=== PATIENT | female | born 1950 | race Caucasian/White ===

== ENCOUNTER 2016-10-20 08:54 | Emergency (ER) | payer MEDICARE ==
[~2016-10-20] VITALS: Ht 160 cm; Wt 101.0 kg
[~2016-10-20 08:54] MED LIST: CEPH500C3 PO; COLC1TAB7 PO; MEDR4PAK3 PO; MELO15TA2 PO; METF500 PO
[2016-10-20 08:56] VITALS: PULSE 63; RESP 16; TEMP 98.5; O2SAT 97
[2016-10-20] MEDS ORDERED: ACETAMINOPHEN 500 MG CPLT PO ONE (09:15)
[2016-10-20] MEDS ORDERED: PRED10 PO (09:17)
[2016-10-20] MEDS ORDERED: METF500T PO (09:17)
[2016-10-20] MEDS ORDERED: MELO-1 PO (09:21)
--- NOTE | 2016-10-20 09:22 | PD ---
HPI Chief Complaint: Musculoskeletal Complaint Time Seen by Provider: 09:10 Travel History International Travel<30 days: No Contact w/Intl Traveler<30days: No Traveled to known affect area: No History of Present Illness HPI This 65-year-old woman who presents to the emergency department complaining of right knee pain. She's had right knee pain for the past week or so. Was worse yesterday. Last night it also got abruptly worse. She today felt something pop in it. No injuries. No increased activity. She is a history of gout and thought maybe it was her gout so she took her prednisone last night. States she 's had GI upset NSAIDs in the past. No other complaints. History Past Medical History Narrative Medical Gout Diabetes Social History Alcohol Use: No Tobacco Use: No Allergies-Medications (Allergen,Severity, Reaction): Coded Allergies: Levaquin (Verified Allergy, Intermediate, Itching, 10/20/16) Nonsteroidal Anti-Inflammatory Agts (Verified Adverse Reaction, Intermediate, Nausea/Vomiting, 10/20/16) Reported Meds & Prescriptions Reported Meds & Active Scripts Active Meloxicam 15 Mg Tab 15 Mg PO DAILY Reported Metformin (Metformin HCl) 500 Mg Tab 500 Mg PO HS With a meal Prednisone 10 Mg Tab 10 Mg PO ONCE Review of Systems Except as stated in HPI: all other systems reviewed are Neg Physical Exam Narrative GENERAL: Well-appearing 65-year-old woman, no acute distress. SKIN: Warm and dry. CARDIOVASCULAR: Warm and well perfused. RESPIRATORY: Normal rate and effort. MUSCULOSKELETAL: Grossly normal appearance the right knee. Is no obvious effusion or swelling. She has pain with range of motion of the but is still of arrange a pretty well. She is unwilling to extend against resistance to the pain. There is no warmth erythema or redness to suggest inflammation. NEUROLOGICAL: Awake and alert. No gross deficits. Data Data Last Documented VS Vital Signs Date Time Temp Pulse Resp B/P Pulse Ox O2 Delivery O2 Flow Rate FiO2 10/20/16 08:56 98.5 63 16 97 Orders Knee, Complete (4vws) (10/20/16 ) Acetaminophen (Tylenol) (10/20/16 09:15) MDM Medical Decision Making Medical Screen Exam Complete: Yes Emergency Medical Condition: Yes Differential Diagnosis Arthritis, injury, fracture, gout, other Narrative Course Medical decision making 65-year-old woman presents emergent part nontraumatic right knee pain. We'll check x-ray, likely negative. Recommended supportive treatment. Acetaminophen or tramadol as needed for pain. Diagnosis Primary Impression: Right knee pain Qualified Code: M25.561 - Acute pain of right knee Additional Instructions: Follow-up with orthopedic doctor for further evaluation of your knee pain. Take acetaminophen, 1000 mg 3 times daily, as needed for pain. Return to the emergency department for any new or worsening symptoms. Med/Other Pt SpecificInfo: Prescription(s) given Scripts Tramadol 50 Mg Tab50 Mg PO Q6H PRN (PAIN) #15 TAB Ref 0 Prov:Wilner Calhoun MD 10/20/16 Disposition: 01 DISCHARGE HOME Condition: Stable Wilner Calhoun MD Oct 20, 2016 09:22 Wilner Calhoun MD Oct 20, 2016 09:22
[2016-10-20] MEDS ORDERED: TRAM50TA PO (09:54)
[2016-10-20 09:58] VITALS: BP 162/84; PULSE 58; RESP 16; O2SAT 97
[2016-10-20] MEDS ORDERED: traMADol HCL 50 MG TAB PO ONE (10:00)
--- NOTE | 2016-10-20 10:10 | RADHPO ---
EXAM DATE/TIME: 10/20/2016 09:23 [place] COMPARISON: No previous studies available for comparison. INDICATIONS: Right knee pain, no known injury. MEDICAL HISTORY: None. SURGICAL HISTORY: None. ENCOUNTER: Initial ACUITY: 3 days PAIN SCORE: 10/10 LOCATION: Right knee FINDINGS: Severe osteoarthritis is noted involving the medial femoral tibial joint and the patellofemoral joint . There is no acute fracture or dislocation of the right knee. No knee joint effusion is noted. CONCLUSION: 1. Severe osteoarthritis is noted involving the medial femoral tibial joint and the patellofemoral j oint. 2. No acute fracture, dislocation or knee joint effusion. Jesus Everett MD on October 20, 2016 at 9:50 Board Certified Radiologist. This report was verified electronically.
[2016-10-20 10:34] VITALS: RESP 16
[2016-12-13] MEDS ORDERED: ALPR.5 PO ×2 (14:12)
== END 2016-10-20 10:43 | disposition home or self-care (01) ==
LOC: PHEFT 08:54
DX: M25.561 Pain in right knee (principal); M10.9 Gout, unspecified
CPT/HCPCS: 73564; 99283

== ENCOUNTER 2016-10-25 12:00 | Emergency (ER) | payer MEDICARE ==
[~2016-10-25] VITALS: Ht 160 cm; Wt 100.0 kg
[~2016-10-25 12:00] MED LIST changes: -CEPH500C3 PO; -COLC1TAB7 PO; -MEDR4PAK3 PO; -MELO15TA2 PO; -METF500 PO; +METF500T PO; +PRED10 PO; +TRAM50TA PO
[2016-10-25 12:02] VITALS: BP 192/89; PULSE 80; RESP 14; TEMP 98.1; O2SAT 99
--- NOTE | 2016-10-25 12:58 | PD ---
HPI Chief Complaint: Abdominal Pain Time Seen by Provider: 12:56 Travel History International Travel<30 days: No Contact w/Intl Traveler<30days: No Traveled to known affect area: No History of Present Illness HPI 65-year-old female with history of diabetes, hypertension, left knee replacement , presents to emergency department for evaluation of right lower abdominal pain. Acute onset this morning around 8 AM. Patient does not recall doing anything out of the ordinary. She has had increased urinary frequency but decreased urinary output. Her urine has had a foul smell. She denies fever or chills. She has been nauseous with vomiting today. She has had loose stool today but no diarrhea. No godfrey red or black tarry stools. No hematemesis. No hematuria. Patient has had tubal ligation otherwise no abdominal surgeries. No other symptoms to report this time. PFSH Past Medical History Hx Anticoagulant Therapy: No Cardiovascular Problems: No Chemotherapy: No Cerebrovascular Accident: No Diabetes: Yes Diminished Hearing: No Gout: Yes Hypertension: Yes Musculoskeletal: Yes (DANIELA KNEE REPLACEMENTS) Respiratory: No Dilation and Curettage (D&C): Yes (x 3) Tubal Ligation: Yes Past Surgical History Hysterectomy: No Tonsillectomy: Yes Social History Alcohol Use: No Tobacco Use: No Substance Use: No Allergies-Medications (Allergen,Severity, Reaction): Coded Allergies: Levaquin (Verified Allergy, Intermediate, Itching, 10/25/16) Nonsteroidal Anti-Inflammatory Agts (Verified Adverse Reaction, Intermediate, Nausea/Vomiting, 10/25/16) Reported Meds & Prescriptions Reported Meds & Active Scripts Active Tramadol (Tramadol HCl) 50 Mg Tab 50 Mg PO Q6H PRN Reported Metformin (Metformin HCl) 500 Mg Tab 500 Mg PO HS With a meal Prednisone 10 Mg Tab 10 Mg PO ONCE Review of Systems Except as stated in HPI: all other systems reviewed are Neg Physical Exam Narrative GENERAL: Well-nourished female patient, lying in bed, in no acute distress SKIN: Warm and dry. HEAD: Atraumatic. Normocephalic. EYES: Pupils equal and round. No scleral icterus. No injection or drainage. ENT: No nasal bleeding or discharge. Mucous membranes pink and moist. NECK: Trachea midline. No JVD. CARDIOVASCULAR: Regular rate and rhythm. No murmur appreciated. RESPIRATORY: No accessory muscle use. Clear to auscultation. Breath sounds equal bilaterally. GASTROINTESTINAL: Abdomen soft, nondistended. Right lower quadrant tenderness to palpation. No guarding. No rebound tenderness. Hepatic and splenic margins not palpable. MUSCULOSKELETAL: No obvious deformities. No clubbing. No cyanosis. No edema. NEUROLOGICAL: Awake and alert. No obvious cranial nerve deficits. Motor grossly within normal limits. Normal speech. PSYCHIATRIC: Appropriate mood and affect; insight and judgment normal. Data Data Last Documented VS Vital Signs Date Time Temp Pulse Resp B/P Pulse Ox O2 Delivery O2 Flow Rate FiO2 10/25/16 12:02 98.1 80 14 192/89 99 Room Air Orders Complete Blood Count With Diff (10/25/16 12:16) Comprehensive Metabolic Panel (10/25/16 12:16) Urinalysis - C+S If Indicated (10/25/16 12:16) Lipase (10/25/16 12:16) Prothrombin Time / Inr (Pt) (10/25/16 12:55) Act Partial Throm Time (Ptt) (10/25/16 12:55) Ondansetron Odt (Zofran Odt) (10/25/16 13:00) Urine Culture (10/25/16 13:25) Labs Laboratory Tests Test 10/25/16 13:25 White Blood Count 8.8 TH/MM3 Red Blood Count 4.55 MIL/MM3 Hemoglobin 13.6 GM/DL Hematocrit 40.7 % Mean Corpuscular Volume 89.6 FL Mean Corpuscular Hemoglobin 29.8 PG Mean Corpuscular Hemoglobin 33.3 % Concent Red Cell Distribution Width 14.3 % Platelet Count 320 TH/MM3 Mean Platelet Volume 9.0 FL Neutrophils (%) (Auto) 72.2 % Lymphocytes (%) (Auto) 18.5 % Monocytes (%) (Auto) 7.8 % Eosinophils (%) (Auto) 1.1 % Basophils (%) (Auto) 0.4 % Neutrophils # (Auto) 6.3 TH/MM3 Lymphocytes # (Auto) 1.6 TH/MM3 Monocytes # (Auto) 0.7 TH/MM3 Eosinophils # (Auto) 0.1 TH/MM3 Basophils # (Auto) 0.0 TH/MM3 CBC Comment DIFF FINAL Differential Comment Prothrombin Time 10.7 SEC Prothromb Time International 1.0 RATIO Ratio Activated Partial 26.6 SEC Thromboplast Time Urine Color LIGHT-YELLOW Urine Turbidity HAZY Urine pH 7.0 Urine Specific [place] 1.012 Urine Protein NEG mg/dL Urine Glucose (UA) NEG mg/dL Urine Ketones NEG mg/dL Urine Occult Blood TRACE Urine Nitrite NEG Urine Bilirubin NEG Urine Urobilinogen LESS THAN 2.0 MG/DL Urine Leukocyte Esterase MOD Urine RBC 2 /hpf Urine WBC 10 /hpf Urine Squamous Epithelial 1 /hpf Cells Urine Bacteria RARE /hpf Microscopic Urinalysis Comment CULTURE INDICATED Sodium Level 141 MEQ/L Potassium Level 3.3 MEQ/L Chloride Level 106 MEQ/L Carbon Dioxide Level 24.3 MEQ/L Anion Gap 11 MEQ/L Blood Urea Nitrogen 16 MG/DL Creatinine 1.14 MG/DL Estimat Glomerular Filtration 48 ML/MIN Rate Random Glucose 147 MG/DL Calcium Level 9.0 MG/DL Total Bilirubin 0.7 MG/DL Aspartate Amino Transf 15 U/L (AST/SGOT) Alanine Aminotransferase 25 U/L (ALT/SGPT) Alkaline Phosphatase 96 U/L Total Protein 7.5 GM/DL Albumin 3.9 GM/DL Lipase 144 U/L [facility] Medical Decision Making Medical Screen Exam Complete: Yes Emergency Medical Condition: Yes Medical Record Reviewed: Yes Differential Diagnosis UTI versus appendicitis versus renal calculi versus colitis Narrative Course 65-year-old female presents to emergency department for evaluation of right lower abdominal pain. I have explained to the patient that her workup has been initiated here in the triage area. Once a medical bed becomes available, patient will be transferred. Condition: Stable AlAlbertoVidyarojelio BAUER Oct 25, 2016 12:58
[2016-10-25] MEDS ORDERED: ONDANSETRON ODT 4 MG TAB PO ONE (13:00)
[2016-10-25 13:47] LABS: AUTOMATED NEUTROPHIL # 6.3 TH/MM3 (1.8-7.7); BASOPHIL % 0.4 % (0.0-2.0); EOSINOPHIL # 0.1 TH/MM3 (0-0.4); EOSINOPHIL % 1.1 % (0.0-4.0); HEMATOCRIT 40.7 % (35.0-46.0); HEMO FLAGS DIFF FINAL; LYMPH % 18.5 % (9.0-44.0); LYMPHOCYTE # 1.6 TH/MM3 (1.0-4.8); MEAN CELL VOLUME 89.6 FL (80.0-100.0); MEAN CORPUSCULAR HEMOGLOBIN 29.8 PG (27.0-34.0); MEAN CORPUSCULAR HGB CONC 33.3 % (32.0-36.0); MONO % 7.8 % (0.0-8.0); NEUT % 72.2 % (16.0-70.0); PLATELET COUNT 320 TH/MM3 (150-450); RED BLOOD COUNT 4.55 MIL/MM3 (4.00-5.30); RED CELL DISTRIBUTION WIDTH 14.3 % (11.6-17.2); WHITE BLOOD COUNT 8.8 TH/MM3 (4.0-11.0)
[2016-10-25 13:52] LABS: BACTERIA, URINE RARE /hpf; BLOOD, URINE TRACE (NEG); COMMENT (UR) CULTURE INDICATED; CULTURE IF INDICATED CULTURE INDICATED; GLUCOSE,URINE NEG (NEG); KETONE, URINE NEG (NEG); NITRITE,URINE NEG (NEG); SQUAMOUS EPITHELIAL CELL URINE 1 /hpf (0-5); URINE COLOR LIGHT-YELLOW (YELLW/STRAW)
[2016-10-25 13:54] LABS: APTT (PATIENT) 26.6 SEC (24.3-30.1); PROTHROMBIN TIME - PATIENT 10.7 SEC (9.8-11.6)
[2016-10-25 14:04] LABS: ANION GAP 11 MEQ/L (5-15); AST (GOT) 15 U/L (15-37); BICARBONATE 24.3 MEQ/L (21.0-32.0); BLOOD UREA NITROGEN 16 MG/DL (7-18); CHLORIDE 106 MEQ/L (98-107); GLOMERULAR FILTRATION RATE 48 ML/MIN (>89); POTASSIUM 3.3 MEQ/L (3.5-5.1); SODIUM (NA) 141 MEQ/L (136-145)
[2016-10-25 14:07] LABS: ALKALINE PHOSPHATASE 96 U/L (45-117); ALT (GPT) 25 U/L (10-53); TOTAL BILIRUBIN ADULT 0.7 MG/DL (0.2-1.0)
[2016-10-25] MEDS ORDERED: ONDANSETRON HCL 4 MG/2 ML VIAL IVP ONE (14:45)
[2016-10-25] MEDS ORDERED: SODIUM CHLORID 0.9% 500 ML INJ 500 ML IV ONE (14:45)
[2016-10-25] MEDS ORDERED: MORPHINE SULFATE 4 MG/ML INJ IV PUSH ONE (14:45)
[2016-10-25] MEDS ORDERED: POTASSIUM CHLORIDE 20 MEQ CONTROLLED RELEASE TAB PO ONE (14:45)
--- NOTE | 2016-10-25 14:53 | PD ---
HPI Chief Complaint: Abdominal Pain Time Seen by Provider: 14:46 Travel History International Travel<30 days: No Contact w/Intl Traveler<30days: No Traveled to known affect area: No History of Present Illness HPI Patient is a 65-year-old female initially seen by provider in triage with a history of diabetes presenting with dysuria, foul-smelling urine, increased urinary urgency, frequency, reduced urine stream and right lower quadrant/flank/ low back pain that began 80 and this morning. Pain is constant and severe and sharp. She has had nausea with vomiting, no hematemesis. Endorses reduced appetite. She feels pressure over the bladder and feels like she has to urinate almost constantly but yet only has a "few dribbles ". She denies fever and chills. She denies constipation, diarrhea, hematochezia and melena. She denies chest pain or shortness of breath. History of D&C 3 and tubal ligation , no other abdominal surgeries. She denies a history of cholelithiasis and renal calculi. Of note her chart states she has a history of hypertension however the patient denies this. She is on medications for hypertension and denies any chest pain, shortness of breath, headache at this time. PFSH Past Medical History Hx Anticoagulant Therapy: No Cardiovascular Problems: No Chemotherapy: No Cerebrovascular Accident: No Diabetes: Yes Patient Takes Glucophage: Yes Diminished Hearing: No Gout: Yes Hypertension: Yes Musculoskeletal: Yes (DANIELA KNEE REPLACEMENTS) Respiratory: No Dilation and Curettage (D&C): Yes (x 3) Tubal Ligation: Yes Past Surgical History Hysterectomy: No Tonsillectomy: Yes Social History Alcohol Use: No Tobacco Use: No Substance Use: No Allergies-Medications (Allergen,Severity, Reaction): Coded Allergies: Levaquin (Verified Allergy, Intermediate, Itching, 10/25/16) Nonsteroidal Anti-Inflammatory Agts (Verified Adverse Reaction, Intermediate, Nausea/Vomiting, 10/25/16) Reported Meds & Prescriptions Reported Meds & Active Scripts Active Macrobid (Nitrofurantoin Monoh/Nitrofur Macro) 100 Mg Cap 100 Mg PO BID 7 Days Zofran Odt (Ondansetron Odt) 4 Mg Tab 4 Mg SL Q6HR PRN Lortab (Hydrocodone-Acetaminophen) 7.5-325 Mg Tab 1 Tab PO Q4H PRN Tramadol (Tramadol HCl) 50 Mg Tab 50 Mg PO Q6H PRN Reported Metformin (Metformin HCl) 500 Mg Tab 500 Mg PO HS With a meal Review of Systems Except as stated in HPI: all other systems reviewed are Neg Physical Exam Narrative GENERAL: Well-developed and well-nourished adult female in no acute distress. SKIN: Warm and dry. Good turgor without tenting. HEAD: Normocephalic and atraumatic. EYES: PERRL bilaterally, 5mm. EOMI bilaterally. No injection or icterus present. No proptosis. Lids without edema or erythema. ENT: Buccal mucosa pink and moist. Oropharynx free of erythema, tonsillar hypertrophy, masses, swelling, asymmetry and exudates. Uvula midline and airway patent. NECK: Supple, no meningeal signs. Trachea midline, no JVD. No cervical or facial lymphadenopathy. CARDIOVASCULAR: Regular rate and rhythm without murmurs, rubs, clicks or gallops. Radial and posterior tibial pulses 2+ bilaterally. No pedal edema. RESPIRATORY: Clear to auscultation bilaterally with symmetrical rise and fall, no distress or use of accessory muscles. GASTROINTESTINAL: Moderate right lower quadrant, suprapubic and right upper quadrant tenderness. Mild right CVA tenderness present. Equivocal Dickson sign. Negative Rovsing sign. No guarding or rebound tenderness. No discoloration or distention. Normal bowel sounds all 4 quadrants. No masses or organomegaly present. MUSCULOSKELETAL: No gait disturbances. Patient freely moving all four extremities spontaneously. Extremities without clubbing, cyanosis, or edema. No obvious deformities. NEUROLOGIC: CN II-XII grossly intact. Awake and alert. Motor grossly within normal limits. Normal speech. PSYCHIATRIC: Appropriate mood and affect; insight and judgment normal. Data Data Last Documented VS Vital Signs Date Time Temp Pulse Resp B/P Pulse Ox O2 Delivery O2 Flow Rate FiO2 10/25/16 15:52 57 20 182/72 99 Room Air 10/25/16 12:02 98.1 Orders Complete Blood Count With Diff (10/25/16 12:16) Comprehensive Metabolic Panel (10/25/16 12:16) Urinalysis - C+S If Indicated (10/25/16 12:16) Lipase (10/25/16 12:16) Prothrombin Time / Inr (Pt) (10/25/16 12:55) Act Partial Throm Time (Ptt) (10/25/16 12:55) Ondansetron Odt (Zofran Odt) (10/25/16 13:00) Urine Culture (10/25/16 13:25) Ct Abd/Pel W/O Iv Contrast (10/25/16 14:43) Morphine Inj (Morphine Inj) (10/25/16 14:45) Ondansetron Inj (Zofran Inj) (10/25/16 14:45) Sodium Chlorid 0.9% 500 Ml Inj (Ns 500 M (10/25/16 14:45) Potassium Chloride (Kcl) (10/25/16 14:45) Ceftriaxone Inj (Rocephin Inj) (10/25/16 15:00) Promethazine Inj (Phenergan Inj) (10/25/16 16:30) Labs Laboratory Tests Test 10/25/16 13:25 White Blood Count 8.8 TH/MM3 Red Blood Count 4.55 MIL/MM3 Hemoglobin 13.6 GM/DL Hematocrit 40.7 % Mean Corpuscular Volume 89.6 FL Mean Corpuscular Hemoglobin 29.8 PG Mean Corpuscular Hemoglobin 33.3 % Concent Red Cell Distribution Width 14.3 % Platelet Count 320 TH/MM3 Mean Platelet Volume 9.0 FL Neutrophils (%) (Auto) 72.2 % Lymphocytes (%) (Auto) 18.5 % Monocytes (%) (Auto) 7.8 % Eosinophils (%) (Auto) 1.1 % Basophils (%) (Auto) 0.4 % Neutrophils # (Auto) 6.3 TH/MM3 Lymphocytes # (Auto) 1.6 TH/MM3 Monocytes # (Auto) 0.7 TH/MM3 Eosinophils # (Auto) 0.1 TH/MM3 Basophils # (Auto) 0.0 TH/MM3 CBC Comment DIFF FINAL Differential Comment Prothrombin Time 10.7 SEC Prothromb Time International 1.0 RATIO Ratio Activated Partial 26.6 SEC Thromboplast Time Urine Color LIGHT-YELLOW Urine Turbidity HAZY Urine pH 7.0 Urine Specific [place] 1.012 Urine Protein NEG mg/dL Urine Glucose (UA) NEG mg/dL Urine Ketones NEG mg/dL Urine Occult Blood TRACE Urine Nitrite NEG Urine Bilirubin NEG Urine Urobilinogen LESS THAN 2.0 MG/DL Urine Leukocyte Esterase MOD Urine RBC 2 /hpf Urine WBC 10 /hpf Urine Squamous Epithelial 1 /hpf Cells Urine Bacteria RARE /hpf Microscopic Urinalysis Comment CULTURE INDICATED Sodium Level 141 MEQ/L Potassium Level 3.3 MEQ/L Chloride Level 106 MEQ/L Carbon Dioxide Level 24.3 MEQ/L Anion Gap 11 MEQ/L Blood Urea Nitrogen 16 MG/DL Creatinine 1.14 MG/DL Estimat Glomerular Filtration 48 ML/MIN Rate Random Glucose 147 MG/DL Calcium Level 9.0 MG/DL Total Bilirubin 0.7 MG/DL Aspartate Amino Transf 15 U/L (AST/SGOT) Alanine Aminotransferase 25 U/L (ALT/SGPT) Alkaline Phosphatase 96 U/L Total Protein 7.5 GM/DL Albumin 3.9 GM/DL Lipase 144 U/L [facility] Medical Decision Making Medical Screen Exam Complete: Yes Emergency Medical Condition: Yes Interpretation(s) Last 24 hours Impressions Abdomen/Pelvis CT 10/25/16 1443 Signed Impressions: Service Date/Time: Tuesday, October 25, 2016 15:28 - CONCLUSION: 1. Patient' s symptoms appear to be due to a 3 mm ureteric stone at the right UVJ with resulting hydroureter and mild pelvocaliectasis. 2. Small, fat-containing umbilical hernia with a loop of nondilated bowel at the base of the hernia sac. Vinnie Klein MD Laboratory Tests Test 10/25/16 13:25 White Blood Count 8.8 TH/MM3 (4.0-11.0) Red Blood Count 4.55 MIL/MM3 (4.00-5.30) Hemoglobin 13.6 GM/DL (11.6-15.3) Hematocrit 40.7 % (35.0-46.0) Mean Corpuscular Volume 89.6 FL (80.0-100.0) Mean Corpuscular Hemoglobin 29.8 PG (27.0-34.0) Mean Corpuscular Hemoglobin 33.3 % Concent (32.0-36.0) Red Cell Distribution Width 14.3 % (11.6-17.2) Platelet Count 320 TH/MM3 (150-450) Mean Platelet Volume 9.0 FL (7.0-11.0) Neutrophils (%) (Auto) 72.2 % (16.0-70.0) Lymphocytes (%) (Auto) 18.5 % (9.0-44.0) Monocytes (%) (Auto) 7.8 % (0.0-8.0) Eosinophils (%) (Auto) 1.1 % (0.0-4.0) Basophils (%) (Auto) 0.4 % (0.0-2.0) Neutrophils # (Auto) 6.3 TH/MM3 (1.8-7.7) Lymphocytes # (Auto) 1.6 TH/MM3 (1.0-4.8) Monocytes # (Auto) 0.7 TH/MM3 (0-0.9) Eosinophils # (Auto) 0.1 TH/MM3 (0-0.4) Basophils # (Auto) 0.0 TH/MM3 (0-0.2) CBC Comment DIFF FINAL Differential Comment Prothrombin Time 10.7 SEC (9.8-11.6) Prothromb Time International 1.0 RATIO Ratio Activated Partial 26.6 SEC Thromboplast Time (24.3-30.1) Urine Color LIGHT-YELLOW (YELLW/STRAW) Urine Turbidity HAZY (CLEAR) Urine pH 7.0 (5.0-8.5) Urine Specific [place] 1.012 (1.002-1.035) Urine Protein NEG mg/dL (NEG-TRACE) Urine Glucose (UA) NEG mg/dL (NEG) Urine Ketones NEG mg/dL (NEG) Urine Occult Blood TRACE (NEG) Urine Nitrite NEG (NEG) Urine Bilirubin NEG (NEG) Urine Urobilinogen LESS THAN 2.0 MG/DL (LESS THAN 2.0) Urine Leukocyte Esterase MOD (NEG) Urine RBC 2 /hpf (0-3) Urine WBC 10 /hpf (0-5) Urine Squamous Epithelial 1 /hpf (0-5) Cells Urine Bacteria RARE /hpf (NONE) Microscopic Urinalysis Comment CULTURE INDICATED Sodium Level 141 MEQ/L (136-145) Potassium Level 3.3 MEQ/L (3.5-5.1) Chloride Level 106 MEQ/L (98-107) Carbon Dioxide Level 24.3 MEQ/L (21.0-32.0) Anion Gap 11 MEQ/L (5-15) Blood Urea Nitrogen 16 MG/DL (7-18) Creatinine 1.14 MG/DL (0.50-1.00) Estimat Glomerular Filtration 48 ML/MIN (>89) Rate Random Glucose 147 MG/DL (74-106) Calcium Level 9.0 MG/DL (8.5-10.1) Total Bilirubin 0.7 MG/DL (0.2-1.0) Aspartate Amino Transf 15 U/L (15-37) (AST/SGOT) Alanine Aminotransferase 25 U/L (10-53) (ALT/SGPT) Alkaline Phosphatase 96 U/L (45-117) Total Protein 7.5 GM/DL (6.4-8.2) Albumin 3.9 GM/DL (3.4-5.0) Lipase 144 U/L (73-393) Differential Diagnosis UTI versus pyelonephritis versus renal calculi versus appendicitis versus cholecystitis Narrative Course Patient is a 65-year-old female with a history of diabetes that is well controlled presenting with right lower quadrant/right flank/low back pain along with dysuria, foul-smelling urine, increased urinary urgency/frequency and "urinary dribbling "began at 8 AM this morning. She is had nausea with vomiting but denies any fever or chills. She is most tender in the right lower quadrant, no rebound or guarding. Equivocal Dickson sign. There is right CVA tenderness present. Labs are performed in triage, showed WBC 8.8, 72.2% neutrophils without bands. Otherwise unremarkable. Metabolic panel shows potassium 3.3, replaced with potassium chloride 20 mEq orally. Creatinine 1.14 which is chronic. Glucose 147. Lipase 144. Urinalysis shows trace blood, moderate leukocyte esterase, 10 WBCs and rare bacteria. Sent for culture. Given the patient's symptoms a year and a tract infection is most likely etiology at this time. She has some CVA tenderness on the right but has no leukocytosis or fever. Patient was given ceftriaxone 1 g, 500 mL of normal saline bolus, Zofran and ordered CT of the abdomen and pelvis without contrast. CT shows a 3 mm stone at the right UPJ with mild hydroureter and hydronephrosis. Umbilical hernia with nondilated bowel loop. Patient had no nausea but occasionally get a "jensen of nausea "have brief symptoms and was not wanting to take her potassium chloride. She was given Phenergan which resolved this. She took potassium chloride was able to keep down and has had no additional nausea for the last 30 minutes. After discussing with Dr. Alcantar she was a patient is okay for discharge at this time with Lortab, Macrobid and Zofran. Patient given a filter to catch the stone and recommended follow-up with urologist tomorrow.See discharge paperwork for further instructions. The plan was discussed with the patient who acknowledged their understanding and agreement. Reinforced the follow-up with primary care is critically important. Patient instructed on emergent conditions that should prompt return to ED. Diagnosis Primary Impression: Renal calculi Additional Impressions: Hydronephrosis Qualified Code: Q62.0 - Hydronephrosis with ureteropelvic junction (UPJ) obstruction Urinary tract infection Qualified Code: N30.00 - Acute cystitis without hematuria Referrals: Dave Tee MD Urologist Patient Instructions: General Instructions, Kidney Stones (ED), Urinary Tract Infection in Women (ED) Additional Instructions: Take medication as prescribed Your medications may cause drowsiness. Do not take with alcohol or sedatives. Do not operate a motor vehicle or heavy machinery while on medication. Drink plenty of fluids to stay hydrated and flush urinary system Follow-up with urology in 1-2 days Return to the ED for any acute worsening of symptoms including fever, worsening pain or uncontrolled nausea and vomiting Med/Other Pt SpecificInfo: Prescription(s) given Scripts Nitrofurantoin Monohydrate Macrocrystals (Macrobid)100 Mg [id number] Mg PO BID 7 Days Prov:Jesus Santos MD 10/25/16 Ondansetron Odt (Zofran Odt)4 Mg Tab4 Mg SL Q6HR PRN (Nausea/Vomiting) #15 TAB Ref 0 Prov:Jesus Santos MD 10/25/16 Hydrocodone-Acetaminophen (Lortab)7.5-325 Mg Tab1 Tab PO Q4H PRN (PAIN) #15 TAB Ref 0 Prov:Jesus Santos MD 10/25/16 Disposition: 01 DISCHARGE HOME Condition: Stable [place] Carranza III Oct 25, 2016 14:53
[2016-10-25] MEDS ORDERED: cefTRIAXone INJ 1,000 MG in SODIUM CHLORIDE 0.9% INJ 100 ML IV ONE (15:00)
[2016-10-25 15:52] VITALS: BP 182/72; PULSE 57; RESP 20; O2SAT 99
--- NOTE | 2016-10-25 16:10 | RADRPT ---
EXAM DATE/TIME: 10/25/2016 15:28 [place] COMPARISON: No previous studies available for comparison. INDICATIONS : Right lower quadrant and right flank pain. ORAL CONTRAST: No oral contrast ingested. RADIATION DOSE: 30.19 CTDIvol (mGy) MEDICAL HISTORY : Hypertension. Diabetes mellitus type 2. SURGICAL HISTORY : Tubal ligation. ENCOUNTER: Initial ACUITY: 1 day PAIN SCALE: 6/10 LOCATION: Right flank TECHNIQUE: Volumetric scanning of the abdomen and pelvis was performed. Using automated exposure control and ad justment of the mA and/or kV according to patient size, radiation dose was kept as low as reasonably achievable to obtain optimal diagnostic quality images. FINDINGS: LOWER LUNGS: The visualized lower lungs are clear. LIVER: Homogeneous density without lesion. There is no dilation of the biliary tree. No calcified gallston es. SPLEEN: Normal size without lesion. PANCREAS: Within normal limits. KIDNEYS: Right perinephric stranding with pelvocaliectasis of the collecting system and mild hydroureter. This is due to a 3 mm stone at the right UVJ. Left kidney is radiographically normal. ADRENAL GLANDS: Within normal limits. VASCULAR: There is no aortic aneurysm. BOWEL/MESENTERY: The stomach, small bowel, and colon demonstrate no acute abnormality. There is no free intraperitone al air or fluid. ABDOMINAL WALL: Small, fat-containing umbilical hernia with a loop of nondilated bowel at the base of the hernia sac. RETROPERITONEUM: There is no lymphadenopathy. BLADDER: No wall thickening or mass. REPRODUCTIVE: Within normal limits. INGUINAL: There is no lymphadenopathy or hernia. MUSCULOSKELETAL: Within normal limits for patient age. CONCLUSION: 1. Patient's symptoms appear to be due to a 3 mm ureteric stone at the right UVJ with resulting hydro ureter and mild pelvocaliectasis. 2. Small, fat-containing umbilical hernia with a loop of nondilated bowel at the base of the hernia s ac. Vinnie Klein MD on October 25, 2016 at 16:00 Board Certified Radiologist. This report was verified electronically.
[2016-10-25] MEDS ORDERED: PROMETHAZINE INJ 25 MG/ML VIAL IM ONE (16:30)
[2016-10-25] MEDS ORDERED: ZOFR4TAB3 SL (17:13)
[2016-10-25] MEDS ORDERED: HYDR-3534 PO (17:13)
[2016-10-25] MEDS ORDERED: MACR100C2 PO (17:14)
[2016-10-25 18:27] VITALS: BP 141/63
[2016-12-13] MEDS ORDERED: ALPR.5 PO ×2 (14:12)
== END 2016-10-25 18:35 | disposition home or self-care (01) ==
LOC: NEPA 12:00
DX: N20.0 Calculus of kidney (principal); N13.2 Hydronephrosis with renal and ureteral calculous obstruction; N39.0 Urinary tract infection, site not specified; E11.9 Type 2 diabetes mellitus without complications; I10 Essential (primary) hypertension
CPT/HCPCS: 74176; 80053; 81001; 83690; 85025; 85610; 85730; 87086; 96365; 96372; 96375; 99284; J0696; J2270; J2405; J2550; J7040

== ENCOUNTER → 2016-12-14 | Day surgery (SDC) | payer MEDICARE ==
[~2016-12-14] VITALS: Ht 162.6 cm; Wt 96.5 kg
[~2016-12-14] MED LIST changes: +ALPR.5 PO; +FAMOTIDINE 20 MG/2 ML VIAL IV ONE; +LACTATED RINGER'S 1000 ML INJ 1,000 ML ONE; +MIDAZOLAM HCL 2 MG/2 ML VIAL ONE; +ONDANSETRON HCL 4 MG/2 ML VIAL IV PUSH ONE; -PRED10 PO; +PROPOFOL 200 MG/20 ML AMP IV ONE; +SCOPOLAMINE 1.5 MG PATCH TD ONE; +SODIUM CHLORIDE 0.9% INJ 100 ML ONE; -TRAM50TA PO; +ceFAZolin INJ 1,000 MG VIAL ONE; +fentaNYL CITRATE 250 MCG/5 ML AMP ONE
[2016-12-14 08:37] VITALS: BP 151/82; PULSE 54; RESP 18; TEMP 98.3; O2SAT 99
[2016-12-14 08:39] LABS: BLOOD, URINE NEG (NEG); GLUCOSE,URINE NEG (NEG); KETONE, URINE NEG (NEG); NITRITE,URINE NEG (NEG)
[2016-12-14 08:43] LABS: METHOD OF COLLECTION CLEAN CATCH; URINE COLOR YELLOW (YELLW/STRAW); WBC, URINE 0-2 /hpf (0-5)
[2016-12-14 08:44] LABS: COMMENT (UR) CULT NOT INDICATED; CULTURE IF INDICATED CULT NOT INDICATED; SQUAMOUS EPITHELIAL CELL URINE 0-5 /hpf (0-5)
[2016-12-14 08:59] LABS: HEMATOCRIT 42.7 % (35.0-46.0); MEAN CELL VOLUME 91.1 FL (80.0-100.0); MEAN CORPUSCULAR HEMOGLOBIN 29.8 PG (27.0-34.0); MEAN CORPUSCULAR HGB CONC 32.7 % (32.0-36.0); PLATELET COUNT 395 TH/MM3 (150-450); RED BLOOD COUNT 4.69 MIL/MM3 (4.00-5.30); RED CELL DISTRIBUTION WIDTH 13.8 % (11.6-17.2)
[2016-12-14 09:00] LABS: REVIEW FLAG FINAL
[2016-12-14 11:20] VITALS: BP 117/60; PULSE 80; RESP 16; TEMP 98.6; O2SAT 99
--- NOTE | 2016-12-15 10:12 | EKG ---
Date Performed: 12/14/2016 Time Performed: 08:51:06 PTAGE: 66 years EKG: Sinus bradycardia with borderline 1st degree A-V block. Borderline ECG NO PREVIOUS TRACING DOCTOR: Lucien Phan Interpretating Date/Time 12/15/2016 10:08:56
--- NOTE | 2016-12-15 10:27 | MP ---
cc: LINA BONDS MD,LISE Porter MD DATE OF SURGERY 12/14/2016 PREOPERATIVE DIAGNOSIS Postmenopausal bleeding, endometrial polyps. POSTOPERATIVE DIAGNOSIS Postmenopausal bleeding, endometrial polyps. OPERATION Hysteroscopy, dilation and curettage and polypectomy. SURGEON Hoang Jose MD ANESTHESIA General endotracheal COMPLICATIONS None ESTIMATED BLOOD LOSS 50 cc INDICATIONS This postmenopausal patient has had three previous D&C for postmenopausal bleeding. Ultrasound suggested thickened and irregular endometrium and possibly a polyp. There may also be a small submucous fibroid. FINDINGS At the time of surgery, the patient was found to have several polyps on stalks arising from the posterior wall of the uterus. After polypectomy and curettage, even the stalks were not identifiable. The endometrial cavity was normal in size and shape and both tubal ostia were seen. Very scant tissue was returned on curettage of the uterus and also of the cervix. PROCEDURE The patient was taken the operating room, placed supine on the operating table. After general endotracheal anesthetic, she was prepped and draped in the dorsal lithotomy position. A weighted vaginal speculum was placed in the posterior vault of the vagina and the anterior lip of the cervix was grasped with a single-tooth tenaculum. The uterine cervix was dilated to accept a hysteroscope and using saline as distension media, the findings described above were noted. A small ring forceps was used to extract the polyp seen followed by a separate specimen with sharp curettage of the endometrial cavity, followed by a third specimen of curettage of the endocervix. The hysteroscope was reinserted in order to make sure the removal was complete. The patient was awakened and transferred to the recovery room awake and breathing on her own. She tolerated the procedure well. Sponge, needle and instrument counts were correct. Lise Jose MD PMF/DJL /10:17 AM /10:13 AM
== END | disposition home or self-care (01) ==
LOC: PHSDC 08:13
PROVIDERS: ATTEND Obstetrics & Gynecology
DX: N87.9 Dysplasia of cervix uteri, unspecified (principal); N84.0 Polyp of corpus uteri; N95.0 Postmenopausal bleeding; R94.31 Abnormal electrocardiogram [ECG] [EKG]
CPT/HCPCS: 00952; 36415; 58558; 81001; 85027; 88305; 93005; J0690; J2250; J2405; J3010; J7120

== ENCOUNTER 2017-10-19 19:33 | Emergency (ER) | payer MEDICARE ==
[~2017-10-19] VITALS: Ht 160 cm; Wt 96.0 kg
[~2017-10-19 19:33] MED LIST changes: -FAMOTIDINE 20 MG/2 ML VIAL IV ONE; -LACTATED RINGER'S 1000 ML INJ 1,000 ML ONE; -MIDAZOLAM HCL 2 MG/2 ML VIAL ONE; -ONDANSETRON HCL 4 MG/2 ML VIAL IV PUSH ONE; -PROPOFOL 200 MG/20 ML AMP IV ONE; -SCOPOLAMINE 1.5 MG PATCH TD ONE; -SODIUM CHLORIDE 0.9% INJ 100 ML ONE; -ceFAZolin INJ 1,000 MG VIAL ONE; -fentaNYL CITRATE 250 MCG/5 ML AMP ONE
[2017-10-19 20:21] VITALS: BP 134/76; PULSE 69; RESP 20; TEMP 99.2
[2017-10-19] MEDS ORDERED: MEDR4PAK PO (22:54)
[2017-10-19] MEDS ORDERED: HYDR-3366 PO (22:54)
--- NOTE | 2017-10-19 22:54 | PD ---
HPI Chief Complaint: Pain: Acute or Chronic Time Seen by Provider: 22:33 Travel History International Travel<30 days: No Contact w/Intl Traveler<30days: No Traveled to known affect area: No History of Present Illness HPI patient 66-year-old female with a history of gout presents emergency Department with right foot pain. Patient states this started on Monday 4 days ago. She states that she had a beer which was [place] variety and she was not used to the night before. States she's been taking her colchicine as prescribed and is not alleviating her symptoms. She denies any injury denies any calf swelling leg swelling shortness of breath. Denies any fevers. PFSH Past Medical History Hx Anticoagulant Therapy: No Cancer: No Cardiovascular Problems: No Chemotherapy: No Cerebrovascular Accident: No Diabetes: Yes Patient Takes Glucophage: Yes (10-19-17 0800) Diminished Hearing: No Gout: Yes Genitourinary: No Hepatitis: No Hiatal Hernia: No Hypertension: Yes Medical other: Yes (GOUT) Musculoskeletal: Yes ( LEFT KNEE REPLACEMENTS) Neurologic: No Psychiatric: No Reproductive: Yes (TUBAL LIGATION, D&C, POSTMENOPAUSAL BLEEDING) Respiratory: No Immunizations Current: Yes Thyroid Disease: No Tetanus Vaccination: < 5 Years Influenza Vaccination: No ?: Not Menopausal: Yes Dilation and Curettage (D&C): Yes (x 3) Tubal Ligation: Yes Past Surgical History Gynecologic Surgery: Yes (TUBAL LIGATION, D&C) Hysterectomy: No Joint Replacement: Yes (LEFT KNEE) Tonsillectomy: Yes Social History Alcohol Use: No Tobacco Use: No Substance Use: Yes Allergies-Medications (Allergen,Severity, Reaction): Coded Allergies: levofloxacin (Unverified Allergy, Intermediate, Itching, 10/19/17) diclofenac (Unverified Adverse Reaction, Intermediate, Nausea/Vomiting, 08/26) etodolac (Unverified Adverse Reaction, Intermediate, Nausea/Vomiting, 10/19) flurbiprofen (Unverified Adverse Reaction, Intermediate, Nausea/Vomiting, 10/19/17) ibuprofen (Unverified Adverse Reaction, Intermediate, Nausea/Vomiting, 08/26) indomethacin (Unverified Adverse Reaction, Intermediate, Nausea/Vomiting, 10/19/17) ketoprofen (Unverified Adverse Reaction, Intermediate, Nausea/Vomiting, 08/26) ketorolac (Unverified Adverse Reaction, Intermediate, Nausea/Vomiting, 08/26) naproxen (Unverified Adverse Reaction, Intermediate, Nausea/Vomiting, 10/19) oxaprozin (Unverified Adverse Reaction, Intermediate, Nausea/Vomiting, 08/26) Reported Meds & Prescriptions Reported Meds & Active Scripts Active Medrol Dosepak (Methylprednisolone) 4 Mg Dspk 4 Mg PO DIRECTED Per Pharmacist direction [place] (Hydrocodone-Acetaminophen) 10-325 Mg Tab 1 Tab PO Q6H PRN Reported Metformin (Metformin HCl) 500 Mg Tab 500 Mg PO HS With a meal Review of Systems Except as stated in HPI: all other systems reviewed are Neg Physical Exam Narrative GENERAL: Well-nourished, well-developed patient. SKIN: Focused skin assessment warm/dry. There is some warmth mild swelling to the right foot, minimal redness, consistent with an advanced gouty flare. There is some tenderness over the first great toe as well. There is no lymphadenitis nor lymphangina, no swelling of the calf, no swelling of the thigh. HEAD: Normocephalic. EYES: No scleral icterus. No injection or drainage. NECK: Supple, trachea midline. No JVD or lymphadenopathy. CARDIOVASCULAR: Regular rate and rhythm without murmurs, gallops, or rubs. RESPIRATORY: Breath sounds equal bilaterally. No accessory muscle use. GASTROINTESTINAL: Abdomen soft, non-tender, nondistended. MUSCULOSKELETAL: No cyanosis, or edema. BACK: Nontender without obvious deformity. No CVA tenderness. Data Data Last Documented VS Vital Signs Date Time Temp Pulse Resp B/P (MAP) Pulse Ox O2 Delivery O2 Flow Rate FiO2 10/19/17 23:50 18 10/19/17 23:48 78 132/78 (96) 99 10/19/17 20:21 99.2 Orders Orders Oxycodone-Acetamin 5-325 Mg (Percocet (10/19/17 23:00) Ed Discharge Order (10/19/17 22:55) Oxycodone-Acetamin 5-325 Mg (Percocet (10/19/17 23:15) Urinalysis - C+S If Indicated (10/19/17 23:09) Labs Laboratory Tests Test 10/19/17 22:44 Urine Color CRISSY Urine Turbidity SLIGHT Urine pH 5.5 Urine Specific [place] 1.030 Urine Protein TRACE mg/dL Urine Glucose (UA) NEG mg/dL Urine Ketones TRACE mg/dL Urine Occult Blood TRACE Urine Nitrite NEG Urine Bilirubin SMALL Urine Leukocyte Esterase TRACE Urine RBC 4-9 /hpf Urine WBC 3-5 /hpf Urine Squamous Epithelial Cells 6-8 /hpf Urine Calcium Oxalate Crystals MANY /hpf Urine Bacteria NONE /hpf Microscopic Urinalysis Comment CULT NOT INDICATED MDM Medical Decision Making Medical Screen Exam Complete: Yes Emergency Medical Condition: Yes Differential Diagnosis Gouty arthritis, gout flare, cellulitis unlikely, fracture highly unlikely. Narrative Course Patient roomed in emergency primary, she appears well in no obvious distress. Pain medicine given, symptoms highly consistent with a gout flare. She is stable for discharge, discussed symptomatically management returned ED criteria follow-up with primary care physician. Diagnosis Primary Impression: Acute gouty arthritis Med/Other Pt SpecificInfo: Prescription(s) given Scripts Methylprednisolone Dosepak (Medrol Dosepak) 4 Mg Dspk 4 MG PO DIRECTED, #1 DSPK 0 Refills Per Pharmacist direction Prov: Jesus Santos MD 10/19/17 Hydrocodone-Acetaminophen ([place]) 10-325 Mg Tab 1 TAB PO Q6H Y for PAIN, #15 TAB 0 Refills Prov: Jesus Santos MD 10/19/17 Disposition: 01 DISCHARGE HOME Condition: Stable Jesus Santos MD Oct 19, 2017 22:54
[2017-10-19] MEDS ORDERED: oxyCODONE/ACETAMINOPHEN 5 MG/325 MG TAB PO ONE ×2 (23:00→23:15)
[2017-10-19 23:15] LABS: BILIRUBIN, URINE SMALL (NEG); GLUCOSE,URINE NEG (NEG); KETONE, URINE TRACE mg/dL (NEG); NITRITE,URINE NEG (NEG); PH, URINE 5.5 (5.0-8.5); URINE LEUKOCYTE ESTERASE TRACE (NEG)
[2017-10-19 23:22] LABS: BLOOD, URINE TRACE (NEG); URINE COLOR AMBER (YELLW/STRAW)
[2017-10-19 23:23] LABS: CALCIUM OXALATE CRYSTALS,URINE MANY /hpf
[2017-10-19 23:48] VITALS: BP 132/78
[2017-10-19 23:50] VITALS: RESP 18
== END 2017-10-19 23:49 | disposition home or self-care (01) ==
LOC: PHED 19:33 → PHEFT 23:49
DX: M10.9 Gout, unspecified (principal); E11.9 Type 2 diabetes mellitus without complications; Z79.84 Long term (current) use of oral hypoglycemic drugs
CPT/HCPCS: 81001; 99284